=== PATIENT | female | born 1990 | race American Indian/Alaskan Native ===

== ENCOUNTER 2016-05-13 15:36 | Outpatient (CLI) | payer BC ==
--- NOTE | 2016-05-13 16:32 | XRay Report ---
Right humerus 2 views: History: Nex[facility] placement unable to locate. Findings: No fracture previously treated lesion. A radiopaque linear foreign body identified at the medial aspect of the right humerus in the subcutaneous tissue at the level of the mid humerus. Impression: Findings as described.
== END 2016-05-13 15:37 | disposition home or self-care (01) ==
LOC: XRAY 15:36
PROVIDERS: ATTEND Obstetrics & Gynecology
DX: Z30.46 Encounter for surveillance of implantable subdermal contraceptive (principal)